=== PATIENT | female | born 1995 | race Two or more races ===

== ENCOUNTER 2023-12-24 09:49 | Outpatient (RCR) | payer OTHER, SELFPAY ==
--- NOTE | 2023-12-24 12:52 | MHC.SP.ADU ---
Referring provider: Daniel Zavala MD Reason for Referral: Vocal cord nodules Type of Treatment: 53016 Behavioral and Qualitative Analysis of Voice and Resonance Date of Plan of Treatment: 12/24/23 Onset of Symptoms/Illness: 11/03/23 Date Treatment Started: 12/24/23 Medical Diagnosis: Hoarseness Vocal cord nodules Primary Speech Language Diagnosis: R49.0 Dysphonia History Pt is a bright and ambitious 28 year-old female referred by her ENT after discovery of, small nodule anterior left and right true vocal cords . She was initially referred to ENT for globus pharyngus and is being followed by GI for concerns over Acid Reflux. She reports past medical history of asthma. 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 She lives with Family in a multi-generational home including kids and reports she often has to raise her voice over others. She uses a dehumidifier for her basement level room due to existance of mold. Medical History: Recent Hospitalizations: No Respiratory Needs: Room Air Patient Orientation: Alert & Oriented x 4 Social History: Employment Status: [employer] Employed Highest level of education obtained: Completed Associate Deg. Comment: Past Speech Language Therapy: None. Other Therapies Seen in Current Calendar Year: None Other: None reported. Swallowing History: Dysphagia Specific: Other Comments: Pt reports Globus sensation intermittently not associated with swallowing. Is reported to have swallow evaluation (?Barium Swallow) with GI. Pre-evaluation Dietary Consistencies: Regular Pre-eval Liquid Intake: Thin Reported Speech, Language, Cognition difficulties: Voice Comments: Quality of Life: Pt reports a score of 15 on the Voice-Related Quality of Life Measure (VR-QoL) which is within the normal range. Her highest score of 3 (A moderate amount) was for question 4, I am sometimes anxious or frustrated because of my voice. Patient Stated Goal of Speech-Language Therapy: To improve her vocal quality. Assessment Speech Production: Within Functional Limits Clinical Impression: Intact Informal Voice Assessment: Voice Loudness: Normal Voice Nasal Resonance: Normal Voice Oral Resonance: Normal Voice Phonatory-based Quality: Hoarse Voice Pitch: Mildly Low Limited Variation Voice Other Observations: Clinical Impression: Impaired Clinicial Observations: Ilene reported the following Vocal Hygiene risk factors: - Drinking less than 32oz of water per day. - She estimates she spends 12+ hours a day talking between her job and Family life. - She reports she likes to sing in the car (in addition to work and home). - She talks when stressed. - She talks when tired. - She reports seltzer and chocolate intake, denies excessive Coffee or Tea. - She reports the presence of mold in her sleeping environment. - She reports non-compliance to GERD medications, instead she takes a mixture of hot water, lemon, and apple-cider vinegar daily. Mean Phonation Time (MPT) for ah was 12 seconds over x3 trials. Norm is 15-20 seconds suggesting reduced glottal closure. Vocal quality was subjectively judged as horse as well as with perturbation. S/Z ratio was 1.8 (s=16sec, z=9sec). A ratio greater than 1.4 suggests vibratory dysfunction. 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 Ilene will benefit from Voice Therapy to complement other medical management of her Dysphonia. Tests of Speech & Lang Adults: Clinical Impression: Did Not Test Observations: Testing not indicated. Tests of Cognition: Clinical Impression: Intact Observations: Testing not indicated. Augmentative and Alternative Communication: Did Not Test Observations: Testing not indicated. Impressions and Recommendations Summary: Impact on Daily Function/Activity Limitations: Daily Activities: Mild Interpersonal Interactions: Mild Education: Mild Employment: Moderate Community: Mild Prognosis for Improvement: Good Recommendation for Speech Therapy: Outpatient Speech Therapy Frequency/Duration: 1 x week x 12 weeks Date Range for Service Requested: 12/24/22 - 03/23/23 Time to Reassess: 3 months Fpc Goals: 1.) Pt will report alleviation of symptoms. 2.) Pt will demonstrate improved vocal quality with the [employer] Multi-dimensional Voice Program (MDVP) Short Term Goals: Goal # : 1.) Pt will identify environmental modifications to alleviate vocal misuse and abuse with >80% accuracy after a training period. Goal Status: New Goal Goal# : 2.) Pt will demonstrate stimulability for anterior resonance with nasal sounds (m,n,ng) with >80% accuracy after a training period. Goal Status: New Goal Goal # : 3.) Pt will complete initial instrumental assessment using the MDVP. Goal Status: New Goal Recommended Referrals to be Discussed with Primary Care Provider: GI Consult (GERD) ENT Consult Continue to follow-up with medical providers. Patient Education: Completed: Yes Patient/Caregiver Education: Described Results of Evaluation Patient expressed understanding of evaluation Patient agrees with goals and treatment plan Patient requires further education on strategies Implant Polisher Clinican/Clinical Fellow: No Supervisory Statement: N/A Speech Language Pathologist: Roderick Cage M.A., CCC-CREDENTIALS SPECIALIST
== END 2024-01-26 15:15 | disposition still patient (30) ==
LOC: HO.SH 09:49
PROVIDERS: Visit Provider Otolaryngology
DX: R49.0 Dysphonia (principal)
CPT/HCPCS: 92524

== ENCOUNTER 2024-03-03 10:00 | Outpatient (RCR) | payer OTHER, SELFPAY | END 2024-09-02 14:05 | disposition home or self-care (01) | LOC: HO.SH 10:00 | PROVIDERS: PCP Internal Medicine; Visit Provider Otolaryngology | DX: R49.0 Dysphonia (principal); J38.2 Nodules of vocal cords | CPT/HCPCS: 92507 ==